=== PATIENT | male | born 1990 | race Caucasian/White ===

== ENCOUNTER 2019-11-30 13:42 | Emergency (ER) | payer BC ==
--- NOTE | 2019-11-30 15:10 | EDM.PDOC ---
ED HPI GENERAL MEDICAL PROBLEM - General Chief Complaint: Abdominal Pain Stated Complaint: RT ABDOMEN PAIN Time Seen by Provider: 11/30/19 14:08 Source of Information: Reports: Patient, RN Notes Reviewed - History of Present Illness INITIAL COMMENTS - FREE TEXT/NARRATIVE: 29 yr old male with mild RUQ discomfort off and on for about the past 2 weeks. It has been mostly a "pulling sensation" when he bends over. Today a couple of hrs ago he had sudden onset pain, became nauseated, passed out briefly, vomited once and than started feeling much better. Right Upper Abdomen Pain Score (Numeric/FACES): 2 - Related Data Allergies Allergy/AdvReac Type Severity Reaction Status Date / Time No Known Allergies Allergy Verified 11/30/19 13:53 Past Medical History - Past Health History Medical/Surgical History: Denies Medical/Surgical History Social & Family History - Family History Family Medical History: Noncontributory - Tobacco Use Smoking Status *Q: Never Smoker Second Hand Smoke Exposure: No ED ROS GENERAL - Review of Systems Review Of Systems: See Below Constitutional: Denies: Fever, Chills HEENT: Reports: No Symptoms Respiratory: Denies: Shortness of Breath, Pleuritic Chest Pain Cardiovascular: Denies: Chest Pain GI/Abdominal: Reports: Abdominal Pain (now almost gone at time of exam), Constipation (several days ago, gone), Nausea, Vomiting. Denies: Diarrhea Skin: Reports: No Symptoms Neurological: Reports: Dizziness (gone) ED EXAM, GI/ABD - Physical Exam Exam: See Below General Appearance: Alert, No Apparent Distress Head: Atraumatic Neck: Supple Respiratory/Chest: No Respiratory Distress, Lungs Clear, Normal Breath Sounds Cardiovascular: Regular Rate, Rhythm GI/Abdominal Exam: Soft, Non-Tender. No: Guarding Back Exam: No: CVA Tenderness (L), CVA Tenderness (R) Extremities: Normal Inspection Skin Exam: Warm, Dry, Normal Color Course - Vital Signs Last Recorded V/S: Last Vital Signs Temp 98.7 F 11/30/19 13:53 Pulse 91 11/30/19 13:53 Resp 16 11/30/19 13:53 BP 162/105 H 11/30/19 13:53 Pulse Ox 100 11/30/19 13:53 - Re-Assessments/Exams Free Text/Narrative Re-Assessment/Exam: 08/10/20 15:12 flat and upright shows a fair amt of stool and gas scattered, no air fluid levels. He was constipated a few days ago, took a laxative and "than had diarrhea" Departure - Departure Time of Disposition: 15:07 Disposition: Home, Self-Care 01 Condition: Fair Clinical Impression: Abdominal muscle strain - Discharge Information Instructions: Muscle Strain Referrals: PCP,Not In Area [Primary Care Provider] - Forms: ED Department Discharge Additional Instructions: clear liquids for the next 2 hrs, than careful bland diet as tolerated. Drink plenty of water to maintain hydration. Return to ED as needed if symptoms worsening in any way. Sepsis Event Note (ED) - Evaluation Sepsis Screening Result: No Definite Risk - Focused Exam Vital Signs: Vital Signs Temp Pulse Resp BP Pulse Ox 11/30/19 13:53 98.7 F 91 16 162/105 H 100
--- NOTE | 2019-11-30 15:20 | CR ---
Abdomen: Supine and upright views the abdomen were obtained. Comparison: No previous study. Bowel gas pattern appears normal. Calcifications are seen within the pelvis compatible with phleboliths. No free air is seen. Bony structures are unremarkable. Impression: 1. Nothing acute seen on supine and upright abdominal x-ray. Diagnostic code #2 Study was dictated in [facility]T
== END 2019-11-30 15:17 | disposition home or self-care (01) ==
LOC: JD.ED 13:42
DX: S39.011A Strain of muscle, fascia and tendon of abdomen, initial encounter (principal); X58.XXXA Exposure to other specified factors, initial encounter
CPT/HCPCS: 74019; 74019-26; 99282; 99284-25